=== PATIENT | male | born 1975 | race Caucasian/White ===

== ENCOUNTER 2017-04-01 04:28 | Emergency (ER) | payer OTHER ==
[~2017-04-01] VITALS: Ht 175.3 cm; Wt 94.7 kg
[~2017-04-01 04:28] MED LIST: ASCORBIC ACID500 M3 PO; ASPIRIN81 M2 PO; DIOVAN HCT 31 TABLE1 PO; FISH OIL 1,0001 EAC7 PO; LEXAPRO10 MG PO; OMEPRAZOLE20 MG PO; PERCOCET 5/31 TABLET PO; TORADOL10 MG PO; TRAMADOL HCL50 MG PO; VOLTAREN 1% GE100 GM TP
[2017-04-01] MEDS ORDERED: SINGULAIR10 MG PO (05:27)
[2017-04-01] MEDS ORDERED: MEDROL DOSEPAK4 MG PO (05:27)
[2017-04-01] MEDS ORDERED: SYMBICORT60 INHALA1 IH (05:27)
[2017-04-01 05:50] VITALS: BP 133/73
== END 2017-04-01 05:52 | disposition home or self-care (01) ==
LOC: EME 04:28
DX: J45.901 Unspecified asthma with (acute) exacerbation (principal); E78.5 Hyperlipidemia, unspecified; I10 Essential (primary) hypertension; Z79.82 Long term (current) use of aspirin
CPT/HCPCS: 71020; 94640; 99281; 99284; J7512